=== PATIENT | female | born 1995 | race Caucasian/White ===

== ENCOUNTER → 2023-06-09 | Outpatient (CLI) | payer BC | LOC: M PLAIMG 08:28 | PROVIDERS: ATTEND Otolaryngology | DX: J33.0 Polyp of nasal cavity (principal) ==

== ENCOUNTER 2024-02-15 10:36 | Day surgery (SDC) | payer BC ==
[~2024-02-15] VITALS: Ht 167.6 cm; Wt 93.0 kg
[2024-02-15] MEDS ORDERED: fentaNYL 100 MCG/2 ML INJECTION As Ordered ONE (11:24)
[2024-02-15] MEDS ORDERED: MIDAZOLAM INJ 2MG/2ML VIAL As Ordered ONE (11:24)
[2024-02-15] MEDS ORDERED: ROCURONIUM BROMIDE 50MG/5ML VIAL As Ordered ONE (11:26)
[2024-02-15] MEDS ORDERED: LIDOCAINE 2% 100MG/5ML SDV (FOR ANES.) As Ordered ONE (13:08)
[2024-02-15] MEDS ORDERED: propofoL 200 MG/20 ML VIAL As Ordered ONE (13:08)
[2024-02-15] MEDS ORDERED: ONDANSETRON 4MG 2ML VIAL As Ordered ONE (13:08)
[2024-02-15] MEDS ORDERED: SUGAMMADEX SODIUM 500 MG/5 ML VIAL (BRIDION) As Ordered ONE (13:08)
[2024-02-15] MEDS: OXYMETAZOLINE 0.05% NASAL SPRAY (AFRIN) As Ordered ONE (13:21)
[2024-02-15] MEDS ORDERED: ACETAMINOPHEN 1000MG 100ML IV BAG As Ordered ONE (13:48)
[2024-02-15] MEDS: COCAINE 4% 4ML NASAL SOLUTION BTL As Ordered ONE (14:02)
[2024-02-15] MEDS: LIDOCAINE W/EPINEPHRINE 1% 20ML VIAL As Ordered ONE (14:16)
[2024-02-15] MEDS ORDERED: LR 1,000 ML IV SCH ×2 (14:35→14:50)
[2024-02-15] MEDS ORDERED: ONDANSETRON 4MG 2ML VIAL IV PRN (14:35)
[2024-02-15] MEDS: fentaNYL 100 MCG/2 ML INJECTION IV PRN (14:45)
[2024-02-15] MEDS ORDERED: ANEXSIA, NORCO 7.5MG/325MG TABLET(HYDROCODONE/APAP) PO PRN (14:55)
[2024-02-15] MEDS: oxyCODONE 5MG TAB PO PRN (15:32)
[2024-02-15 16:00] VITALS: BP 138/83; TEMP 97.7; O2SAT 100
== END 2024-02-15 16:15 | disposition home or self-care (01) ==
LOC: M SDC 10:36
PROVIDERS: ATTEND Otolaryngology
DX: J34.3 Hypertrophy of nasal turbinates (principal); J34.2 Deviated nasal septum; J30.9 Allergic rhinitis, unspecified
CPT/HCPCS: 30140; 30520; 81025; C9143; J0131; J1100; J2250; J2405; J3010